=== PATIENT | female | born 1965 | race Caucasian/White ===

== ENCOUNTER 2016-10-25 18:59 | Emergency (ER) | payer MEDICAID ==
[~2016-10-25] VITALS: Ht 152.4 cm; Wt 68.9 kg
[2016-10-25 18:59] VITALS: BP_SYST 178
[2016-10-25 19:40] LABS: BILIRUBIN,URINE NEGATIVE (NEGATIVE); CLARITY/URINE SL HAZY (CLEAR); COLOR,URINE YELLOW (YELLOW); GLUCOSE,URINE 3+ (NEGATIVE); KETONES,URINE NEGATIVE (NEGATIVE); LEUKOCYTE ESTERASE ,URINE NEGATIVE (NEGATIVE); NITRITE, URINE NEGATIVE (NEGATIVE); PROTEIN URINE NEGATIVE (NEGATIVE); UROBILINOGEN,URINE 0.2 (0.2-1.0)
[2016-10-25 19:42] LABS: BLOOD, URINE TRACE (NEGATIVE)
[2016-10-25 19:50] LABS: BACTERIA,URINE None Seen /HPF (None Seen); RBC,URINE 0-3 /HPF (0-3); WBC,URINE NONE SEEN /HPF (0-3)
[2016-10-25] MEDS ORDERED: LIDOCAINE 1% 10 MG/ML, 20 ML MDV INJ ONE (20:30)
[2016-10-25] MEDS ORDERED: DIPH-TET-PERTUS Vaccine 0.5 ML VIAL (ADACEL) I.M. ONE (20:30)
[2016-10-25] MEDS ORDERED: MORPHINE 2 MG/ML INJ. SYRINGE IM ONE (20:30)
[2016-10-25] MEDS ORDERED: LORazepam 2 MG/ML VIAL (FOR ER USE) IM ONE (21:30)
[2016-10-25] MEDS ORDERED: fentaNYL CITRATE/PF 100 MCG/2 ML AMP IM ONE (21:30)
[2016-10-25] MEDS ORDERED: BACITRACIN 1 GM OINT TP ONE ×2 (22:00→22:06)
[2016-10-25 22:11] VITALS: BP_SYST 154
== END 2016-10-25 22:11 | disposition home or self-care (01) ==
LOC: SED 18:59
DX: S13.8XXA Sprain of joints and ligaments of other parts of neck, initial encounter (principal); S83.8X1A Sprain of other specified parts of right knee, initial encounter; S83.8X2A Sprain of other specified parts of left knee, initial encounter; S01.112A Laceration without foreign body of left eyelid and periocular area, initial encounter; E11.9 Type 2 diabetes mellitus without complications; Z88.6 Allergy status to analgesic agent; W18.39XA Other fall on same level, initial encounter; Y93.89 Activity, other specified; Y92.89 Other specified places as the place of occurrence of the external cause; Y99.8 Other external cause status
CPT/HCPCS: 12013; 70450; 72125; 73564; 81000; 90471; 90715; 96372; 99285; J2001; J2060; J2270; J3010